=== PATIENT | female | born 1950 | race Caucasian/White ===

== ENCOUNTER 2018-05-27 10:34 | Emergency (ER) | payer MEDICARE, BC ==
--- NOTE | 2018-05-27 11:16 | ER Document Report ---
HPI - HPI Pain Level: 3 - ROS Systems Reviewed and Negative: Yes All other systems reviewed and negative - REPRODUCTIVE Reproductive: DENIES: : - MUSCULOSKELETAL Musculoskeletal: REPORTS: Extremity pain - R knee Past Medical History - Social History Smoking Status: Current Every Day Smoker Chew tobacco use (# tins/day): No Frequency of alcohol use: history. Sober x1 year Drug Abuse: None Family History: Reviewed & Not Pertinent Patient has suicidal ideation: No Patient has homicidal ideation: No Pulmonary Medical History: Denies: Hx Tuberculosis Neurological Medical History: Reports: Hx Cerebrovascular Accident. Denies: Hx Seizures Renal/ Medical History: Denies: Hx Peritoneal Dialysis Musculoskeletal Medical History: Reports Hx Arthritis Psychiatric Medical History: Reports: Hx Bipolar Disorder, Hx Depression Past Surgical History: Reports: Hx Section, Hx Orthopedic Surgery. Denies: Hx Pacemaker - Immunizations Hx Diphtheria, Pertussis, Tetanus Vaccination: No Hx Pneumococcal Vaccination: 11/10/11 Vertical Provider Document - CONSTITUTIONAL Agree With Documented VS: Yes - INFECTION CONTROL TRAVEL OUTSIDE OF THE [place] IN LAST 30 DAYS: No Course - Vital Signs Vital signs: Temp Pulse Resp BP Pulse Ox 97.8 F 86 20 133/78 H 96 05/27/18 10:46 05/27/18 10:46 05/27/18 10:46 05/27/18 10:46 05/27/18 10:46
--- NOTE | 2018-05-27 11:32 | ER Document Report ---
ED Extremity Problem, Lower - General Chief Complaint: Knee Injury Stated Complaint: KNEE PAIN Time Seen by Provider: 05/27/18 10:54 Mode of Arrival: Medic Information source: Patient Notes: 67-year-old female tangled with her dogs lead and fell on her right knee last night at 7:30 PM. She has been having to scoot around on her but because she cannot bear weight on her right leg. She missed a follow-up appointment for the left knee with Dr. nam. TRAVEL OUTSIDE OF THE [place] IN LAST 30 DAYS: No - Related Data Allergies/Adverse Reactions: No Known Allergies Allergy (Verified 05/27/18 10:36) Past Medical History - General Information source: Patient - Social History Smoking Status: Current Every Day Smoker Chew tobacco use (# tins/day): No Frequency of alcohol use: history. Sober x1 year Drug Abuse: None Family History: Reviewed & Not Pertinent Patient has suicidal ideation: No Patient has homicidal ideation: No Pulmonary Medical History: Denies: Hx Tuberculosis Neurological Medical History: Reports: Hx Cerebrovascular Accident. Denies: Hx Seizures Renal/ Medical History: Denies: Hx Peritoneal Dialysis Musculoskeletal Medical History: Reports Hx Arthritis Psychiatric Medical History: Reports: Hx Bipolar Disorder, Hx Depression Past Surgical History: Reports: Hx Section, Hx Orthopedic Surgery. Denies: Hx Pacemaker - Immunizations Hx Diphtheria, Pertussis, Tetanus Vaccination: No Hx Pneumococcal Vaccination: 11/10/11 Review of Systems - Review of Systems Constitutional: No symptoms reported EENT: No symptoms reported Cardiovascular: No symptoms reported Respiratory: No symptoms reported Gastrointestinal: No symptoms reported Genitourinary: No symptoms reported Female Genitourinary: No symptoms reported Musculoskeletal: See HPI Skin: No symptoms reported Hematologic/Lymphatic: No symptoms reported Neurological/Psychological: No symptoms reported Physical Exam - Vital signs Vitals: Temp Pulse Resp BP Pulse Ox 97.8 F 86 20 133/78 H 96 05/27/18 10:46 05/27/18 10:46 05/27/18 10:46 05/27/18 10:46 05/27/18 10:46 Interpretation: Normal - General General appearance: Appears well, Alert In distress: None - HEENT Head: Normocephalic, Atraumatic Eyes: Normal Pupils: PERRL - Respiratory Respiratory status: No respiratory distress Chest status: Nontender Breath sounds: Normal Chest palpation: Normal - Cardiovascular Rhythm: Regular Heart sounds: Normal auscultation Murmur: No - Back Back: Normal, Nontender - Extremities General upper extremity: Normal inspection, Nontender, Normal color, Normal ROM , Normal temperature General lower extremity: Normal inspection, Nontender, Normal color, Normal ROM , Normal temperature, Normal weight bearing. No: Emma's sign Knee: Tender - swollen warm right knee, most tender proximal tibia Calf: Other - no compartment syndrome, no calf swelling, N/V intact distally, 2 + DP - Neurological Neuro grossly intact: Yes Cognition: Normal Orientation: AAOx4 [place] Coma Scale Eye Opening: Spontaneous Rodríguez Coma Scale Verbal: Oriented [place] Coma Scale Motor: Obeys Commands [place] Coma Scale Total: 15 Speech: Normal Motor strength normal: LUE, RUE, LLE, RLE Sensory: Normal - Psychological Associated symptoms: Normal affect, Normal mood - Skin Skin Temperature: Warm Skin Moisture: Dry Skin Color: Normal Course - Re-evaluation Re-evalutation: 05/27/18 11:45 Patient has a tibial plateau fracture on the right, Dr. san paged and left a cell phone message to return my call for consultation. Ordered a long-leg posterior leg splint and crutches. Patient states she will be able to use crutches. 05/27/18 12:13 Dr. Gannon returned the call and recommended that she get the CT of the knee today with a knee immobilizer or the posterior long leg splint that I told him I had ordered with crutches. Have her call Wednesday for an appointment early next week and they will do a surgical repair next week. 05/27/18 13:06 Patient is unable to completely extend her leg due to pain. Posterior splint is going to be reinforced so she has more stabilization at the knee. The CT scan shows comminuted fracture posterior two thirds of the lateral tibial plateau with a central fragment 10 mm depressed articular surface and acute fracture of the posterior half of the medial tibial plateau with 2-3 mm of inferior displacement of the fracture fragment. - Vital Signs Vital signs: Temp Pulse Resp BP Pulse Ox 98.4 F 84 16 130/74 H 98 05/27/18 13:39 05/27/18 13:39 05/27/18 13:39 05/27/18 13:39 05/27/18 13:39 Procedures - Immobilization Right Leg Time completed: 13:20 Pre-Proc Neuro Vasc Exam: Normal Immobilizer type: Long leg posterior Performed by: PCT Post-Proc Neuro Vasc Exam: Normal Alignment checked and good: Yes Discharge - Discharge Clinical Impression: Tibial plateau fracture, right Qualifiers: Encounter type: initial encounter Fracture type: closed Qualified Code(s): S82.141A - Displaced bicondylar fracture of right tibia, initial encounter for closed fracture Condition: Good Disposition: HOME, SELF-CARE Instructions: Use of Crutches ([facility]), Fracture ([facility]), Ice & Elevation ([facility]), Splint Precautions ([facility]), Temporary Splint ([facility]) Additional Instructions: Call [facility] for surgery Wednesday for a follow-up appointment with Dr. Burnett or evaluate for this tibial plateau fracture on Wednesday or Wednesday. This will be a surgical repair by the dr burnett or dr cyril App[place] for Non-weight bearing Return to the emergency room any concerns Prescriptions: Hydrocodone Bit/Acetaminophen [Hydrocodon-Acetaminophen 5-325] 1 each PO Q4HP PRN #20 tablet PRN Reason: Referrals: TANO BURNETT MD [ACTIVE STAFF] - 05/30/18
--- NOTE | 2018-05-27 11:33 | ER Document Report ---
ED Medical Screen (RME) - General Chief Complaint: Knee Injury Stated Complaint: KNEE PAIN Time Seen by Provider: 05/27/18 10:54 TRAVEL OUTSIDE OF THE [place] IN LAST 30 DAYS: No - HPI Notes: 05/27/18 11:32 Patient is a 67-year-old female with a history of mental health disorders who presents to the ED complaining of right knee pain and swelling status post injury yesterday evening. Patient states that she tripped over her dog and landed directly on her knee. Patient states that she has had pain with flexion and extension of that knee. Patient did receive Toradol by EMS today. She denies any drug allergies. The pain does not radiate. Denies any headache, fever, head injury, neck pain, URI, sore throat, chest pain, palpitations, syncope, cough, shortness of breath, wheeze, dyspnea, abdominal pain, nausea/ vomiting/diarrhea, urinary retention, dysuria, hematuria, loss of control of bowel or bladder, numbness/tingling, muscle paralysis/weakness, or rash. I have treated and performed a rapid initial assessment of this patient. A comprehensive ED assessment and evaluation of the patient, analysis of test results and completion of medical decision making process will be conducted by additional ED providers. PHYSICAL EXAMINATION: GENERAL: Well-appearing, well-nourished and in no acute distress. LUNGS: Breath sounds clear to auscultation bilaterally and equal. No wheezes rales or rhonchi. HEART: Regular rate and rhythm without murmurs, rubs, gallops. Musculoskeletal: Rt knee: + swelling noted. LROM to passive/active. Strength 4+ /5 due to pain. N/V intact distal. + tenderness to the patella and anterior knee. Unable to test ligaments/cartilage at this time. No calf tenderness. Extremities: No cyanosis, clubbing, or edema b/l. Peripheral pulses 2+. Capillary refill less than 3 seconds. Emma neg b/l. NEUROLOGICAL: Normal speech. Normal sensory, motor exams PSYCH: Normal mood, normal affect. SKIN: Warm, Dry, normal turgor, no rashes or lesions noted. 05/27/18 11:32 - Related Data Allergies/Adverse Reactions: No Known Allergies Allergy (Verified 05/27/18 10:36) Past Medical History - Social History Chew tobacco use (# tins/day): No Frequency of alcohol use: history. Sober x1 year Drug Abuse: None Pulmonary Medical History: Denies: Hx Tuberculosis Neurological Medical History: Reports: Hx Cerebrovascular Accident. Denies: Hx Seizures Renal/ Medical History: Denies: Hx Peritoneal Dialysis Musculoskeltal Medical History: Reports Hx Arthritis Psychiatric Medical History: Reports: Hx Bipolar Disorder, Hx Depression Past Surgical History: Reports: Hx Section, Hx Orthopedic Surgery. Denies: Hx Pacemaker - Immunizations Hx Diphtheria, Pertussis, Tetanus Vaccination: No Physical Exam - Vital signs Vitals: Temp Pulse Resp BP Pulse Ox 97.8 F 86 20 133/78 H 96 05/27/18 10:46 05/27/18 10:46 05/27/18 10:46 05/27/18 10:46 05/27/18 10:46 Course - Vital Signs Vital signs: Temp Pulse Resp BP Pulse Ox 97.8 F 86 20 133/78 H 96 05/27/18 10:46 05/27/18 10:46 05/27/18 10:46 05/27/18 10:46 05/27/18 10:46
--- NOTE | 2018-05-27 11:44 | RADIOLOGY REPORT (SQ) ---
EXAM DESCRIPTION: KNEE RIGHT 4 VIEWS COMPLETED DATE/TIME: 05/27/2018 11:32 am REASON FOR STUDY: pain s/p injury, landed directly on knee COMPARISON: None. NUMBER OF VIEWS: Four views. TECHNIQUE: AP, lateral, and both oblique radiographic images acquired of the right knee. LIMITATIONS: None. FINDINGS: MINERALIZATION: Normal. BONES: There is a comminuted fracture of the lateral tibial plateau. Depressed bone fragments are id entified. JOINT: There is soft tissue fullness at the level of the suprapatellar pouch consistent with a joint effusion. SOFT TISSUES: Soft tissue swelling is identified. OTHER: No other significant finding. IMPRESSION: Fracture of the lateral tibial plateau as noted above. Other findings as noted above. TECHNICAL DOCUMENTATION: JOB ID: [id number] [employer]- All Rights Reserved Reading location - IP/workstation name: [email or web address]
--- NOTE | 2018-05-27 12:56 | RADIOLOGY REPORT (SQ) ---
EXAM DESCRIPTION: CT RT LOWER EXTREMITY WITHOUT COMPLETED DATE/TIME: 05/27/2018 12:35 pm REASON FOR STUDY: right tibial plateau fx COMPARISON: None. TECHNIQUE: CT scan of the right knee performed without intravenous or oral contrast. Images reviewe d with soft tissue and bone windows. Reconstructed coronal and sagittal MPR images reviewed. All im ages stored on PACS. All CT scanners at this facility use dose modulation, iterative reconstruction, and/or weight based d osing when appropriate to reduce radiation dose to as low as reasonably achievable (ALARA). [facility]: Dose Right [facility]: CareDose [facility]: Dose Right [facility]: Teradose 4D [facility]: [employer] RADIATION DOSE: CT Rad equipment meets quality standard of care and radiation dose reduction techniq ues were employed. CTDIvol: 4.6 mGy. DLP: 146 mGy-cm. mGy. LIMITATIONS: None. FINDINGS: Bones are osteopenic. Acute fracture, posterior half medial tibial plateau with 2 to 3 mm of inferior displacement of the f racture fragment with respect to the articular surface. These findings are best shown on sagittal re construction series 300, images 19-22. Comminuted fracture posterior 2/3 of the lateral tibial plateau, central fragment with weight-bearing articular surface is depressed by 10 mm on sagittal reconstruction series 300, image 30. Lateral ti bial plateau fracture lines extend into the proximal tibiofibular joint. Along the medial edge of the patella articular surface, subcortical region is present which has scler osis on both sides, likely a developmental variant rather than an acute fracture. This is best shown on coronal reconstruction series 301, images 12-14, and sagittal reconstruction series 300, images 2 1-24. Distal femur is intact. Proximal fibula is intact Large knee joint effusion Cruciate ligaments are grossly intact. IMPRESSION: Acute nondepressed fracture posterior half medial tibial plateau Acute comminuted fracture posterior 2/3 of the lateral tibial plateau, with depression of the articul ar surface by 10 mm. No definite patella, distal femur, or proximal fibular fracture. TECHNICAL DOCUMENTATION: JOB ID: [id number] Quality ID # [id number]: Final reports with documentation of one or more dose reduction techniques (e.g., Au tomated exposure control, adjustment of the mA and/or kV according to patient size, use of iterative reconstruction technique) 2010 [employer]- All Rights Reserved Reading location - IP/workstation name: [email or web address] [id number]
[2018-05-27 13:40] VITALS: BP 130/74
== END 2018-05-27 13:40 | disposition home or self-care (01) ==
LOC: ER 10:34
PROC: 2W3LX1Z Immobilization of Right Lower Extremity using Splint (ICD-10-PCS; principal; 2018-05-27)
DX: S82.141A Displaced bicondylar fracture of right tibia, initial encounter for closed fracture (principal); M25.561 Pain in right knee; M79.89 Other specified soft tissue disorders; W01.0XXA Fall on same level from slipping, tripping and stumbling without subsequent striking against object, initial encounter
CPT/HCPCS: 99284

== ENCOUNTER 2018-06-02 09:30 | Inpatient (IN) | payer MEDICARE, OTHER ==
[~2018-06-02 09:30] MED LIST: CEFAZOLIN 2 GM/D5W RTU 2 GM/50 ML RTUPB IV PRN
--- NOTE | 2018-06-02 10:09 | RADIOLOGY REPORT (SQ) ---
EXAM DESCRIPTION: CHEST SINGLE VIEW COMPLETED DATE/TIME: 06/02/2018 9:54 am REASON FOR STUDY: PREOP COMPARISON: None. EXAM PARAMETERS: NUMBER OF VIEWS: One view. TECHNIQUE: Single frontal radiographic view of the chest acquired. RADIATION DOSE: NA LIMITATIONS: None. FINDINGS: LUNGS AND PLEURA: No opacities, masses or pneumothorax. No pleural effusion. MEDIASTINUM AND HILAR STRUCTURES: No masses. Contour normal. HEART AND VASCULAR STRUCTURES: Heart normal in size. Normal vasculature. BONES: No acute findings. HARDWARE: Orthopedic hardware proximal left humerus OTHER: No other significant finding. IMPRESSION: NO ACUTE RADIOGRAPHIC FINDING IN THE CHEST. TECHNICAL DOCUMENTATION: JOB ID: [id number] [employer] All Rights Reserved Reading location - IP/workstation name: [email or web address]
[2018-06-02 10:33] LABS: HEMATOCRIT 35.3 % (36.0-47.0); HEMOGLOBIN 12.4 g/dL (12.0-15.5); MEAN CORPUSCULAR HEMOGLOBIN 36.8 pg (27.0-33.4); MEAN CORPUSCULAR HGB CONC 35.1 g/dL (32.0-36.0); MEAN CORPUSCULAR VOLUME 105 fl (80-97); PLATELET COUNT 287 10^3/uL (150-450); RED BLOOD COUNT 3.37 10^6/uL (3.72-5.28); RED CELL DISTRIBUTION WIDTH 18.4 % (11.5-14.0); WHITE BLOOD COUNT 7.5 10^3/uL (4.0-10.5)
[2018-06-02 10:54] LABS: BLOOD UREA NITROGEN 13 mg/dL (7-20); CALCIUM 9.3 mg/dL (8.4-10.2); CARBON DIOXIDE 17 mmol/L (22-30); GLUCOSE 84 mg/dL (75-110); POTASSIUM 3.6 mmol/L (3.6-5.0)
[2018-06-02 11:00] LABS: CHLORIDE 100 mmol/L (98-107)
[2018-06-02 11:05] LABS: SODIUM 137.9 mmol/L (137-145)
[2018-06-02 11:07] LABS: ANION GAP 21 (5-19)
[2018-06-02] MEDS ORDERED: MIDAZOLAM 2 MG/2 ML INJ ONE (12:33)
[2018-06-02] MEDS ORDERED: ONDANSETRON HCL INJ/PF 4 MG/2 ML SDV ONE (12:33)
[2018-06-02] MEDS ORDERED: FENTANYL CITRATE INJ/PF 250 MCG/5 ML AMPULE ONE (12:33)
[2018-06-02] MEDS ORDERED: DEXAMETHASONE SOD PHOSPHATE INJ 4 MG/1 ML VIAL ONE (12:33)
[2018-06-02] MEDS ORDERED: PROPOFOL INJ 200 MG/20 ML VIAL IV ONE (12:33)
[2018-06-02] MEDS ORDERED: ACETAMINOPHEN 1,000 MG/100 ML RTUPB IV ONE (12:33)
[2018-06-02] MEDS ORDERED: SUCCINYLCHOLINE CHLORIDE INJ 200 MG/10 ML VIAL ONE (13:24)
[2018-06-02] MEDS ORDERED: MORPHINE SULFATE 10 MG/ML INJ IV PRN ×2 (13:35→15:43)
[2018-06-02] MEDS ORDERED: ONDANSETRON HCL INJ/PF 4 MG/2 ML SDV IV PRN ×2 (13:35→15:25)
[2018-06-02] MEDS ORDERED: FENTANYL CITRATE INJ/PF 100 MCG/2 ML AMPUL IV PRN ×3 (13:35)
[2018-06-02] MEDS ORDERED: MEPERIDINE HCL/PF INJ 25 MG/1 ML DISP.SYRIN IV PRN (13:35)
[2018-06-02] MEDS ORDERED: DIPHENHYDRAMINE HCL 50 MG/ML VIAL IV PRN (13:35)
[2018-06-02] MEDS ORDERED: PROMETHAZINE HCL INJ 25 MG/1 ML VIAL IV PRN ×2 (13:35)
[2018-06-02] MEDS ORDERED: OXYCODONE-ACETAMINOPHEN 5-325 MG TABLET PO PRN ×2 (13:35)
[2018-06-02] MEDS ORDERED: MORPHINE SULFATE 10 MG/ML INJ ONE (14:36)
[2018-06-02] MEDS ORDERED: DEXTROSE 50%-WATER 25 GM/50 ML DISP.SYRIN IV PRN ×2 (15:25)
[2018-06-02] MEDS ORDERED: GLUCAGON,HUMAN RECOMB 1 MG INJ SUBCUT PRN (15:25)
[2018-06-02] MEDS ORDERED: RINGERS SOLUTION,LACTATED 1,000 ML IV PRN (15:25)
[2018-06-02] MEDS ORDERED: DEXTROSE 40% GEL 15 GM TUBE PO PRN ×2 (15:25)
[2018-06-02] MEDS ORDERED: MAG HYDROX/AL HYDROX/SIMETH SUSP 30 ML UDCUP PO PRN (15:25)
--- NOTE | 2018-06-02 15:39 | Operative Report ---
Operative Report DATE OF SURGERY: 06/02/18 PREOPERATIVE DIAGNOSIS: Displaced right lateral tibial plateau fracture POSTOPERATIVE DIAGNOSIS: Same OPERATION: ORIF of the right lateral tibial plateau fracture SURGEON: EVETTE MASTERSON ANESTHESIA: GA TISSUE REMOVED OR ALTERED: None COMPLICATIONS: None ESTIMATED BLOOD LOSS: Less than 30 mL's INTRAOPERATIVE FINDINGS: As above PROCEDURE: Patient received preoperative antibiotics in the holding area. She was transported to the OR where she was induced under general anesthetic. A thigh tourniquet was applied to the right lower extremity. Timeout was done identifying the right lower extremity as the correct site. Esmarch was used to exsanguinate the extremity and the tourniquet was inflated at 300 mmHg. Curvilinear incision was done over the proximal tibia. Electrocautery was used and reflected the tibialis anterior off of the tibial crest and plateau. We with the curve and exposed and with lift the lateral meniscus superiorly. This allowed us to look at the joint and see the comminuted fracture with a depressed articular fragment. There was some loose articular pieces that were resected. There is no continuity with bone and there were fragments that had no blood supply so they were discarded. Successfully placed the leg in a triangle and drilled a hole in the tibial metaphysis through the medial metaphysis I used a joker and bone tamps to then elevate the articular fragment. I used a C-arm to confirm proper height as well as direct visual visualization. Once satisfied with the reduction of the lateral plateau fragments I then proceeded to fill in the void with cancellus chips and tricalcium product from [employer] called Hydrocet. At this point I then chose and trial of the plate. I used C-arm pictures to show the reduction and position of the plate both AP and lateral. I pinned in place and then was able to put the locking guide onto the plate. I drilled and placed my 3 locking screws approximately supporting the tibial plateau. Minor proximal fixation was secure so I then proceeded to then placed my screws and distally to the tibial diaphysis. The first screw was a nonlocking screw to suck the plate down and then the second most distal one was then was a locking screw. A third screw was a kickstand screw which was locking screw as well. AP and lateral images were saved to show my reduction and fixation. At this point irrigation was used to clean the wound and then reapproximation of the tibialis anterior was done and the fascial layer. This was closed with a #1 Vicryl. I then used 2-0 Vicryl to reapproximate the subcutaneous dermis and fat. I used markel then to close the skin successfully. Xeroform 4 x 4 dressing and ABD pad was applied followed by soft roll. I will wrapped the knee with an Teo bandage. Tourniquet was let down after 160 minutes and the drapes were removed. Patient was successfully extubated and sent to PACU in a stable condition.
[2018-06-02] MEDS ORDERED: OXYCODONE HCL IR 5 MG TABLET PO PRN ×2 (15:40→17:15)
--- NOTE | 2018-06-02 17:18 | RADIOLOGY REPORT (SQ) ---
EXAM DESCRIPTION: NO CHG FLUORO COMPLETE DATE/TIME: 06/02/2018 3:28 pm REASON FOR STUDY: ORIF RIGHT TIBIAL PLATEAU FX S82.121A DISP FX OF LATERAL CONDYLE OF RIGHT TIBIA, INIT FOR FINDINGS: Please see combined report for performance of procedure and radiologic supervision and int erpretation. IMPRESSION: Please see combined report for performance of procedure and radiologic supervision and i nterpretation. Reading location - IP/workstation name: [email or web address]
--- NOTE | 2018-06-02 17:18 | RADIOLOGY REPORT (SQ) ---
EXAM DESCRIPTION: TIBIA FIBULA RIGHT COMPLETED DATE/TIME: 06/02/2018 3:28 pm REASON FOR STUDY: ORIF RIGHT TIBIAL PLATEAU FX S82.121A DISP FX OF LATERAL CONDYLE OF RIGHT TIBIA, INIT FOR COMPARISON: CT 05/27/2018 FLUOROSCOPY TIME: 1.2 minutes 2 digital C-arm images images saved to PACS. TECHNIQUE: Intra-operative images acquired during surgical procedure to evaluate progress. NUMBER OF IMAGES: 2 digital C-arm images LIMITATIONS: None. FINDINGS: Intra procedural imaging and fluoro IMPRESSION: Intra procedural imaging and fluoro COMMENT: Quality ID [id number]: Final reports for procedures using fluoroscopy that document radiation exp osure indices, or exposure time and number of fluorographic images (if radiation exposure indices are not available) Please consult full operative report of the attending physician for description of the procedure. TECHNICAL DOCUMENTATION: JOB ID: [id number] [employer]- All Rights Reserved Reading location - IP/workstation name: [email or web address]
[2018-06-02] MEDS: SENNOSIDES/DOCUSATE 8.6-50 MG 1 EACH TABLET PO SCH (19:12)
[2018-06-02] MEDS: CEFAZOLIN 2 GM/D5W RTU 2 GM/50 ML RTUPB IV SCH (19:31)
[2018-06-02] MEDS: ZIPRASIDONE HCL 40 MG CAPSULE PO SCH (19:33)
[2018-06-02] MEDS: OXYCODONE HCL IR 5 MG TABLET PO PRN (19:34)
[2018-06-02] MEDS ORDERED: SENNOSIDES/DOCUSATE 8.6-50 MG 1 EACH TABLET PO SCH (22:00)
--- NOTE | 2018-06-02 23:04 | EKG REPORT ---
SEVERITY:- NORMAL ECG - SINUS RHYTHM : Confirmed by: Walter Luna 02-Jun-2018 23:03:28
[2018-06-02] MEDS: LAMOTRIGINE 100 MG TABLET PO SCH (23:42)
[2018-06-03] MEDS: CEFAZOLIN 2 GM/D5W RTU 2 GM/50 ML RTUPB IV SCH ×4 (01:04→17:44)
[2018-06-03] MEDS: OXYCODONE HCL IR 5 MG TABLET PO PRN (03:28)
[2018-06-03] MEDS ORDERED: VANCOMYCIN HCL 1,000 MG in DEXTROSE 5%-WATER 250 ML IV ONE (03:30)
[2018-06-03] MEDS: LEVOTHYROXINE SODIUM 0.15 MG TABLET PO SCH (05:56)
[2018-06-03] MEDS: LAMOTRIGINE 100 MG TABLET PO SCH ×3 (05:56→21:25)
[2018-06-03 06:08] LABS: HEMATOCRIT 31.2 % (36.0-47.0); HEMOGLOBIN 10.8 g/dL (12.0-15.5); MEAN CORPUSCULAR HEMOGLOBIN 36.6 pg (27.0-33.4); MEAN CORPUSCULAR HGB CONC 34.7 g/dL (32.0-36.0); MEAN CORPUSCULAR VOLUME 106 fl (80-97); PLATELET COUNT 290 10^3/uL (150-450); RED BLOOD COUNT 2.95 10^6/uL (3.72-5.28); RED CELL DISTRIBUTION WIDTH 18.4 % (11.5-14.0); WHITE BLOOD COUNT 9.3 10^3/uL (4.0-10.5)
[2018-06-03 06:30] LABS: ANION GAP 15 (5-19); BLOOD UREA NITROGEN 8 mg/dL (7-20); CALCIUM 8.7 mg/dL (8.4-10.2); CARBON DIOXIDE 20 mmol/L (22-30); CHLORIDE 102 mmol/L (98-107); GLUCOSE 137 mg/dL (75-110); POTASSIUM 3.8 mmol/L (3.6-5.0)
[2018-06-03] MEDS: ACETAMINOPHEN 325 MG TABLET PO PRN ×2 (07:57→16:02)
[2018-06-03] MEDS ORDERED: LEVOTHYROXINE SODIUM 0.05 MG TABLET PO SCH (10:00)
[2018-06-03] MEDS ORDERED: LAMOTRIGINE 100 MG TABLET PO SCH (10:00)
[2018-06-03] MEDS ORDERED: VITAMIN D3 PO SCH (10:00)
[2018-06-03] MEDS ORDERED: SERTRALINE HCL 50 MG TABLET PO SCH (10:00)
[2018-06-03] MEDS ORDERED: [UNRECOGNIZED DRUG - OTHER] PO SCH (10:00)
[2018-06-03] MEDS ORDERED: CALCIUM CARBONATE PO SCH (10:00)
[2018-06-03] MEDS ORDERED: (PENDING PHARMACY ID) (Ziprasidone Hcl [Geodon] 80 MG) PO SCH (10:00)
[2018-06-03] MEDS: CALCIUM CARBONATE 250 MG/VITAMIN D3 125 UNIT TABLET PO SCH (10:44)
[2018-06-03] MEDS: SENNOSIDES/DOCUSATE 8.6-50 MG 1 EACH TABLET PO SCH ×2 (10:44→17:44)
[2018-06-03] MEDS: PRENATAL VITAMIN W DHA CAPSULE PO SCH (10:44)
[2018-06-03] MEDS: ZIPRASIDONE HCL 40 MG CAPSULE PO SCH ×2 (10:44→17:42)
[2018-06-03] MEDS: ENOXAPARIN SODIUM INJ 40 MG/0.4 ML DISP.SYRIN SUBCUT SCH (10:45)
[2018-06-03] MEDS: SERTRALINE HCL 50 MG TABLET PO SCH (10:45)
--- NOTE | 2018-06-03 13:24 | PDOC PROGRESS REPORT ---
Subjective Progress Note for:: 06/03/18 Subjective:: Patient's pain is better controlled today. Participate with physical therapy. No issues overnight. Reason For Visit: ORIF OF RIGHT TIBIAL PLATEAU FRACTURE Physical Exam Vital Signs: Temp Pulse Resp BP Pulse Ox 36.9 C 74 24 H 107/49 L 92 06/03/18 12:14 06/03/18 12:14 06/03/18 12:14 06/03/18 12:14 06/03/18 12:14 Intake & Output 06/02/18 06/03/18 06/04/18 06:59 06:59 06:59 Intake Total 1600 Output Total 420 Balance 1180 Weight 61.23 kg General appearance: PRESENT: no acute distress Adult Front & Back Image: 1 - Dressing is dry clean and intact. Brace is intact and locked at 0. Neurovascular intact distally. Good sensation to light touch. Calves are soft and depressible. Swelling is appropriate. Results Laboratory Results: 06/03/18 05:29 06/03/18 05:29 06/03/18 06/03/18 05:29 05:29 WBC 9.3 RBC 2.95 L Hgb 10.8 L Hct 31.2 L MCV 106 H MCH 36.6 H MCHC 34.7 RDW 18.4 H Plt Count 290 Sodium 137.0 Potassium 3.8 Chloride 102 Carbon Dioxide 20 L Anion Gap 15 BUN 8 Creatinine 0.41 L Est GFR ( Amer) > 60 Est GFR (Non-Af Amer) > 60 Glucose 137 H Calcium 8.7 Impressions: Chest X-Ray 06/02/18 00:00 IMPRESSION: NO ACUTE RADIOGRAPHIC FINDING IN THE CHEST. Fluoroscopy 06/02/18 00:00 IMPRESSION: Please see combined report for performance of procedure and radiologic supervision and interpretation. Tibia/Fibula X-Ray 06/02/18 00:00 IMPRESSION: Intra procedural imaging and fluoro Status: Image reviewed by me Assessment & Plan - Diagnosis (1) Tibial plateau fracture, right Qualifiers: Encounter type: initial encounter Fracture type: closed Qualified Code(s) : S82.141A - Displaced bicondylar fracture of right tibia, initial encounter for closed fracture Is this a current diagnosis for this admission?: Yes Plan: 67-year-old female postop day 1 from ORIF of right tibial plateau fracture. We will likely be this discharge tomorrow with home health. Instructed to be nonweightbearing right lower extremity. Continue wearing the brace.
[2018-06-03] MEDS ORDERED: HYDROCODONE/ACETAMINOPHEN 5-325 MG TABLET PO PRN (17:41)
[2018-06-04] MEDS: CEFAZOLIN 2 GM/D5W RTU 2 GM/50 ML RTUPB IV SCH ×3 (01:36→12:27)
[2018-06-04] MEDS: HYDROCODONE/ACETAMINOPHEN 5-325 MG TABLET PO PRN ×2 (01:37→12:32)
[2018-06-04] MEDS: LAMOTRIGINE 100 MG TABLET PO SCH ×2 (06:00→14:37)
[2018-06-04] MEDS: LEVOTHYROXINE SODIUM 0.15 MG TABLET PO SCH (06:00)
[2018-06-04 06:32] LABS: HEMATOCRIT 29.1 % (36.0-47.0); MEAN CORPUSCULAR HEMOGLOBIN 36.3 pg (27.0-33.4); MEAN CORPUSCULAR HGB CONC 34.5 g/dL (32.0-36.0); MEAN CORPUSCULAR VOLUME 105 fl (80-97); PLATELET COUNT 279 10^3/uL (150-450); RED BLOOD COUNT 2.76 10^6/uL (3.72-5.28); RED CELL DISTRIBUTION WIDTH 18.2 % (11.5-14.0); WHITE BLOOD COUNT 7.6 10^3/uL (4.0-10.5)
[2018-06-04] MEDS: SERTRALINE HCL 50 MG TABLET PO SCH (09:57)
[2018-06-04] MEDS: ENOXAPARIN SODIUM INJ 40 MG/0.4 ML DISP.SYRIN SUBCUT SCH (09:57)
[2018-06-04] MEDS: SENNOSIDES/DOCUSATE 8.6-50 MG 1 EACH TABLET PO SCH (09:57)
[2018-06-04] MEDS: PRENATAL VITAMIN W DHA CAPSULE PO SCH (09:58)
[2018-06-04] MEDS: CALCIUM CARBONATE 250 MG/VITAMIN D3 125 UNIT TABLET PO SCH (09:58)
[2018-06-04] MEDS: ZIPRASIDONE HCL 40 MG CAPSULE PO SCH (09:59)
[2018-06-04 17:13] VITALS: BP 147/88
--- NOTE | 2018-08-01 10:07 | PDOC DISCHARGE SUMMARY ---
General - Admit/Disc Date/PCP Admission Date/Primary Care Provider: 06/02/18 16:18 ELIZABETH MARTINEZ MD Discharge Date: 06/04/18 - Discharge Diagnosis (1) Tibial plateau fracture, right Is this a current diagnosis for this admission?: Yes - Additional Information Discharge Diet: As Tolerated Discharge Activity: No Driving, Keep Legs Elevated, No tub bath Prescriptions: Aspirin [Aspirin 325 mg Tablet] 325 mg PO DAILY #30 tablet Hydrocodone/Acetaminophen [Osyka 5-325 Tablet] 1 - 2 tab PO ASDIR PRN #40 tab PRN Reason: For Pain Home Medications: Calcium Carbonate/Vitamin D3 [Calcium 600-Vit D3 400 Tablet] 1 tab PO DAILY Hydrocodone/Acetaminophen [Osyka 5-325 mg Tablet] 1 tab PO Q4HP PRN 06/02/18 Lamotrigine [Lamictal 100 mg Tablet] 100 mg PO TID 06/02/18 Levothyroxine Sodium [Synthroid] 150 mcg PO Q6AM 06/02/18 Sertraline HCl [Zoloft 50 mg Tablet] 150 mg PO DAILY 06/02/18 Ziprasidone HCl [Geodon] 80 mg PO BID 06/02/18 Aspirin [Aspirin 325 mg Tablet] 325 mg PO DAILY #30 tablet 06/04/18 Hydrocodone/Acetaminophen [Osyka 5-325 Tablet] 1 - 2 tab PO ASDIR PRN #40 tab History of Present Illness History of Present Illness: CARLINE COYLE is a 68 year old female who suffered a displaced comminuted right tibial plateau fracture requiring open reduction internal fixation on 06/02. Patient denies any numbness or tingling or paresthesias. Complains mostly of swelling pain and deformity and ecchymosis. She recently had a nondisplaced fracture of the left tibial plateau fracture that was being treated nonoperatively. Hospital Course Hospital Course: 68-year-old female who on 06/02/2018 underwent open reduction internal fixation of her right tibial plateau fracture. Surgery went uneventful. Successful surgery patient then was admitted for pain control. She had no issues in her during her hospital stay. Her vital signs were stable and her lab values were within normal limits. Postop day 2 which was 06/04/2018 patient was discharged home with home health. She is wearing the brace instructed to be locked at 0. Instructed be nonweightbearing. She has a wheelchair to ambulate around the house. She is instructed to change her dressing on postop day 3 and then follow -up with me in 7-10 days in the office. Physical Exam Vital Signs: Temp Pulse Resp BP Pulse Ox 36.9 C 63 16 147/88 H 96 06/04/18 17:10 06/04/18 17:10 06/04/18 17:10 06/04/18 17:10 06/04/18 17:10 General appearance: PRESENT: no acute distress Adult Front & Back Image: 1 - Dressing is dry clean and intact. Brace is intact. Locked at 0. She is neurovascular intact distally with soft cast and appropriate postoperative swelling. Negative Homans sign. Results Laboratory Results: 06/04/18 05:41 06/03/18 05:29 Impressions: Chest X-Ray 06/02/18 00:00 IMPRESSION: NO ACUTE RADIOGRAPHIC FINDING IN THE CHEST. Fluoroscopy 06/02/18 00:00 IMPRESSION: Please see combined report for performance of procedure and radiologic supervision and interpretation. Tibia/Fibula X-Ray 06/02/18 00:00 IMPRESSION: Intra procedural imaging and fluoro Status: Image reviewed by me Qualifiers - * PATIENT BEING DISCHARGED WITH ANY OF THE FOLLOWING DIAGNOSIS: No VTE patient discharged on overlapping Therapy?: Yes
== END 2018-06-04 17:50 | disposition home or self-care (01) | DRG 494 ==
LOC: INOR 09:30 → UNDOADMIN 09:30 → 4S 16:18
PROVIDERS: ADMIT Orthopaedic Surgery; ATTEND Orthopaedic Surgery
PROC: 0QSG04Z Reposition Right Tibia with Internal Fixation Device, Open Approach (ICD-10-PCS; principal; 2018-06-02 12:45)
DX: S82.121A Displaced fracture of lateral condyle of right tibia, initial encounter for closed fracture (principal); F43.10 Post-traumatic stress disorder, unspecified; E03.9 Hypothyroidism, unspecified; F10.21 Alcohol dependence, in remission; E78.00 Pure hypercholesterolemia, unspecified; F31.9 Bipolar disorder, unspecified; R53.83 Other fatigue; E55.9 Vitamin D deficiency, unspecified; F41.9 Anxiety disorder, unspecified; M81.0 Age-related osteoporosis without current pathological fracture; Z79.899 Other long term (current) drug therapy
CPT/HCPCS: 01392; 36415; 71045; 80048; 85027; 93005; 93010; 94799; C1713; G8978-GP; G8979-GP; G8987-GO; G8988-GO; G8989-GO; J0131; J0330; J0690; J1100; J1650; J2250; J2270; J2405; J2704; J3010; J3370; J3490; J7060; L1830